=== PATIENT | male | born 1945 | race Caucasian/White ===

== ENCOUNTER 2017-08-28 18:22 | Emergency (ER) | payer OTHER ==
[~2017-08-28] VITALS: Ht 188 cm; Wt 103.0 kg
[~2017-08-28 18:22] MED LIST: ASPCH81 PO; LISI5TAB3 PO; OXYC1TAB3 PO; PRLSR20 PO; ZCRUNK
[2017-08-28 18:46] VITALS: Ht 188 cm; Wt 103.0 kg
[2017-08-28] MEDS ORDERED: ALBUT/IPRATROP 3MG/0.5MG NEB 3 ML VIAL INH STA (19:07)
[2017-08-28] MEDS ORDERED: KETOROLAC TROMETHAMINE 30 MG/ML VIAL IV STA (19:07)
[2017-08-28] MEDS ORDERED: ACETAMINOPHEN 500 MG TAB PO STA (19:07)
--- NOTE | 2017-08-28 19:14 | EMERGENCY ROOM VISIT NOTE ---
History First contact with patient: 18:50 Chief Complaint: FLU LIKE SX Stated Complaint: FLU, ACHY, TROUBLE BREATHING History of Present Illness The patient is a 72 year old male who presents to the Emergency Room with complaints of flulike symptoms for the last 5 days. The patient took his temperature at home. It was 101F. He is been alternating Tylenol with ibuprofen with minimal relief of his symptoms. He is now feeling short of breath. He has a nonproductive cough. He also reports a burning sensation in the middle of his chest, particularly with coughing. He denies any history of cardiac disease. He denies any sick contacts. He works construction. He did not get his flu shot this year. Review of Systems 10 system review performed and negative unless noted in HPI or below Past Medical/Surgical History Hypertension Social History Marital Status: Occupation Status: employed Current/Historical Medications Scheduled Aspirin (Aspirin Ec), 81 MG PO DAILY Lisinopril (Prinivil), 5 MG PO DAILY Pseudoephedrine-Guaifenesin (Mucinex D), 1 TAB PO BID Rosuvastatin Calcium (Crestor), 10 MG PO DAILY Scheduled PRN Hydrocodone W/ Homatropine (Hycodan 5/1.5MG 5 Ml), 5-10 ML PO Q4H PRN for Cough Physical Exam Vital Signs Date Time Temp Pulse Resp B/P (MAP) Pulse Ox O2 Delivery O2 Flow Rate FiO2 08/28/17 22:10 78 18 128/73 96 08/28/17 20:37 37.7 80 20 148/71 96 Room Air 08/28/17 19:57 81 08/28/17 18:46 37.7 92 20 171/88 96 Room Air Physical Exam GENERAL: 72-year-old male, mildly acutely ill in appearance,, SKIN: The skin was warm HEAD: Normocephalic atraumatic. MOUTH: Mucous membranes slightly dry NECK: Supple without nuchal rigidity. No lymphadenopathy. Cervical spine is nontender. No JVD. HEART: Regular rate and rhythm without murmurs gallops or rubs. LUNGS: Mild diffuse wheezing the bases bilaterally. ABDOMEN: Positive bowel sounds x 4.Soft, nontender, without organomegaly. No guarding or rebound tenderness. MUSCULOSKELETAL: No muscle atrophy, erythema, or edema noted. Strength 5/5 throughout. NEURO: Patient was alert and oriented to person place and time. Normal sensation to touch. No focal neurological deficits. Medical Decision & Procedures ER Provider Diagnostic Interpretation: CXR IMPRESSION: 1. Mild cardiomegaly. Otherwise no acute cardiopulmonary disease. Electronically signed by: Conner Hickey M.D. 08/28/2017 8:41 PM Dictated Date/Time: 08/28/2017 8:38 PM The status of this report is Signed. Draft = Not yet reviewed or approved by Radiologist. Signed = Reviewed and approved by Radiologist. <AttendingPhy></AttendingPhy> <FamilyPhy>Spring TERRAZAS M.D.</FamilyPhy> < PrimaryPhy>Spring TERRAZAS M.D.</PrimaryPhy> <UnitNumber>[id number]</UnitNumber> <VisitNumber>[id number]</VisitNumber> <PatientName>GELAAIRTESS Akhtar</ PatientName> <DateOfBirth>1945</DateOfBirth> <Location>[facility]</Location> < ServiceDate>08/28/17</ServiceDate> <MNE>ESINDI</MNE> <OrderingPhy>Jacqui Delarosa PA-C</OrderingPhy> <OrderingPhyMNE>f rep ord dr vaughan</OrderingPhyMNE> < DictatingPhyMNE>f rep dict dr vaughan</DictatingPhyMNE> <CCListMNE>f rep ct mne</ CCListMNE> <AdmittingPhyMNE>f pt admit dr vaughan</AdmittingPhyMNE> <AttendingPhyMNE >f pt attend dr vaughan</AttendingPhyMNE> <ConsultingPhyMNE>f pt consult dr vaughan</ConsultingPhyMNE> <FamilyPhyMNE>f pt fam dr vaughan</FamilyPhyMNE> <OtherPhyMNE>f pt other dr vaughan</OtherPhyMNE> < PrimaryPhyMNE>f pt prim care dr vaughan</PrimaryPhyMNE> <ReferringPhyMNE>f pt referring dr vaughan</ReferringPhyMNE> Laboratory Results 08/28/17 19:40 Red Blood Count 4.75, Mean Corpuscular Volume 84.8, Mean Corpuscular Hemoglobin 30.3, Mean Corpuscular Hemoglobin Concent 35.7, Mean Platelet Volume 9.9, Neutrophils (%) (Auto) 73.0, Lymphocytes (%) (Auto) 16.7, Monocytes (%) (Auto) 9.9, Eosinophils (%) (Auto) 0.2, Basophils (%) (Auto) 0.2, Neutrophils # (Auto) 3.63, Lymphocytes # (Auto) 0.83, Monocytes # (Auto) 0.49, Eosinophils # (Auto) 0.01, Basophils # (Auto) 0.01 08/28/17 19:40 Test 08/28/17 19:40 08/28/17 19:50 White Blood Count 4.97 K/uL (4.8-10.8) Red Blood Count 4.75 M/uL (4.7-6.1) Hemoglobin 14.4 g/dL (14.0-18.0) Hematocrit 40.3 % (42-52) Mean Corpuscular Volume 84.8 fL (80-100) Mean Corpuscular Hemoglobin 30.3 pg (25-34) Mean Corpuscular Hemoglobin Concent 35.7 g/dl (32-36) Platelet Count 131 K/uL (130-400) Mean Platelet Volume 9.9 fL (7.4-10.4) Neutrophils (%) (Auto) 73.0 % Lymphocytes (%) (Auto) 16.7 % Monocytes (%) (Auto) 9.9 % Eosinophils (%) (Auto) 0.2 % Basophils (%) (Auto) 0.2 % Neutrophils # (Auto) 3.63 K/uL (1.4-6.5) Lymphocytes # (Auto) 0.83 K/uL (1.2-3.4) Monocytes # (Auto) 0.49 K/uL (0.11-0.59) Eosinophils # (Auto) 0.01 K/uL (0-0.5) Basophils # (Auto) 0.01 K/uL (0-0.2) RDW Standard Deviation 42.1 fL (36.4-46.3) RDW Coefficient of Variation 13.6 % (11.5-14.5) Immature Granulocyte % (Auto) 0.0 % Immature Granulocyte # (Auto) 0.00 K/uL (0.00-0.02) Anion Gap 8.0 mmol/L (3-11) Est Creatinine Clear Calc Drug Dose 72.5 ml/min Estimated GFR () 71.0 Estimated GFR (Non- 61.3 BUN/Creatinine Ratio 12.2 (10-20) Calcium Level 8.5 mg/dl (8.5-10.1) Total Bilirubin 0.4 mg/dl (0.2-1) Aspartate Amino Transf (AST/SGOT) 28 U/L (15-37) Alanine Aminotransferase (ALT/SGPT) 45 U/L (12-78) Alkaline Phosphatase 70 U/L (45-117) Troponin I < 0.015 ng/ml (0-0.045) Total Protein 7.3 gm/dl (6.4-8.2) Albumin 3.7 gm/dl (3.4-5.0) Globulin 3.6 gm/dl (2.5-4.0) Albumin/Globulin Ratio 1.0 (0.9-2) Influenza Type A Antigen Neg for Influ A (NEG) Influenza Type B Antigen POS for Influ B (NEG) Medications Administered Medications (Trade) Dose Ordered Sig/Carly Route Start Time Stop Time Status Last Admin Dose Admin Sodium Chloride 1,000 ml @ 999 mls/hr Q1H1M ONCE IV 08/28/17 19:15 08/28/17 20:15 DC 08/28/17 19:45 999 MLS/HR Ketorolac Tromethamine (Toradol Inj) 15 mg NOW STAT IV 08/28/17 19:07 08/28/17 19:10 DC 08/28/17 19:45 15 MG Acetaminophen (Tylenol Tab) 1,000 mg NOW STAT PO 08/28/17 19:07 08/28/17 19:10 DC 08/28/17 19:44 1,000 MG Albuterol/ Ipratropium (Duoneb) 3 ml ONE STAT INH 08/28/17 19:07 08/28/17 19:10 DC 08/28/17 19:45 3 ML Hydrocodone Bit/ Homatropine Methylb (Hycodan Syrup) 5 ml NOW STAT PO 08/28/17 20:33 08/28/17 20:34 DC 08/28/17 20:33 5 ML Hydrocodone Bit/ Homatropine Methylb (Hycodan Elix Homepack 5/1.5MG/ 5ML) 1 [facility] UD ONCE PO 08/28/17 22:00 08/28/17 22:01 DC 08/28/17 22:00 1 [facility] ED Course Patient was seen and examined Vital signs including blood pressure were reviewed medications list was verified with patient Labs were obtained, and a saline lock was established The patient was medicated with Toradol 15 mg IV and Tylenol 1 g by mouth. He was hydrated with 1 L of normal saline. He was also given a DuoNeb. The patient was reassessed and resting in bed. We discussed the results of his workup. He voiced understanding. And oxygen trial was performed. The patient was saturating at 94% on room air. The patient was also seen and examined by myself supervising physician who is in agreement with my plan. I reviewed discharge instructions the patient. They voiced understanding and had no further questions. Medical Decision Differential diagnosis: Bronchitis, pneumonia, influenza, other viral syndrome This patient is a 72-year-old male presents to the emergency department complaining of flulike symptoms for 5 days. On exam, he did appear mildly acutely ill. His workup revealed a positive influenza B. There are no signs of pneumonia. The patient's symptoms have been going on for at least 5 days. He is out of the window for Tamiflu. Patient had some symptomatic relief in the emergency department. He'll be sent home on a cough suppressant.. He was instructed to continue taking Tylenol and Motrin in addition to pushing fluids. He was comfortable with this plan. He was encouraged to follow-up with his primary care physician as scheduled tomorrow. He agrees to return to the emergency department with any worsening symptoms. This chart was completed in part utilizing [employer] Speech Voice Recognition software. Attempts were made to minimize the grammatical errors, random word insertions, pronoun errors and incomplete sentences. Any formal questions or concerns about the content, text or information contained within the body of this dictation should be directly addressed to the provider for clarification. Medication Reconcilliation Current Medication List: was personally reviewed by me Blood Pressure Screening Patient's blood pressure: Elevated blood pressure Blood pressure disposition: Referred to PCP Impression Primary Impression: Influenza B Departure Information Dispostion Home / Self-Care Condition FAIR Prescriptions Pseudoephedrine-Guaifenesin (MUCINEX D) 1 Tab Tab 1 TAB PO BID for 5 Days, #10 TAB Prov: Jacqui Delarosa PA-C 08/28/17 Hydrocodone W/ Homatropine (HYCODAN 5/1.5MG 5 ML) 1 Syp Syp 5-10 ML PO Q4H Y for Cough, #120 ML For Initial Treatment Prov: Jacqui Delarosa PA-C 08/28/17 Referrals Spring TERRAZAS M.D. (PCP) Patient Instructions ED Influenza Ch, My [facility] Additional Instructions You were evaluated in the emergency department for a cough and fever. You tested positive for influenza B. This is fairly contagious. Please avoid public places and wash hands frequently until you are feeling better Ibuprofen 600 mg and/or Tylenol 1000 mg every 8 hours. You may also alternate these medications for more effective pain relief: Ibuprofen --4 HRS--> Tylenol --4 HRS--> ibuprofen --4 HRS--> Tylenol .... Please take cough syrup 1-2 teaspoons every 6 hours as needed for cough Please take Mucinex as prescribed Please increase fluids over the next several days. Please follow-up with her primary care physician tomorrow as scheduled Do not hesitate to return to the emergency department with any new, worsening or concerning symptoms Work Instructions Return To Work: 3 days
[2017-08-28] MEDS ORDERED: SODIUM CHLORIDE 0.9% 1000ML 1,000 ML IV ONE (19:15)
[2017-08-28] MEDS ORDERED: ROSU20TA PO (19:20)
[2017-08-28] MEDS ORDERED: LISI-729 PO (19:20)
[2017-08-28] MEDS ORDERED: ASPI81TA28 PO (19:20)
[2017-08-28 19:50] LABS: BASO % 0.2 %; BASO ABS # 0.01 K/uL (0-0.2); EOS % 0.2 %; EOS ABS # 0.01 K/uL (0-0.5); HEMATOCRIT 40.3 % (42-52); HEMOGLOBIN 14.4 g/dL (14.0-18.0); LYMPH % 16.7 %; LYMPH ABS # 0.83 K/uL (1.2-3.4); MEAN CELL VOLUME 84.8 fL (80-100); MEAN CORPUSCULAR HEMOGLOBIN 30.3 pg (25-34); MEAN CORPUSCULAR HGB CONC 35.7 g/dl (32-36); MEAN PLATELET VOLUME 9.9 fL (7.4-10.4); MONO % 9.9 %; MONO ABS # 0.49 K/uL (0.11-0.59); NEUT ABS # 3.63 K/uL (1.4-6.5); PLATELET COUNT 131 K/uL (130-400); RED CELL DISTRIBUTION WIDTH CV 13.6 % (11.5-14.5); RED CELL DISTRIBUTION WIDTH SD 42.1 fL (36.4-46.3); WHITE BLOOD COUNT 4.97 K/uL (4.8-10.8)
[2017-08-28 20:07] LABS: ALBUMIN 3.7 gm/dl (3.4-5.0); ALT/SGPT 45 U/L (12-78); AST/SGOT 28 U/L (15-37); BLOOD UREA NITROGEN 14 mg/dl (7-18); CALCIUM 8.5 mg/dl (8.5-10.1); CARBON DIOXIDE 23 mmol/L (21-32); CREATININE 1.18 mg/dl (0.60-1.40); GLUCOSE 126 mg/dl (70-99); POTASSIUM 4.1 mmol/L (3.5-5.1); SODIUM 132 mmol/L (136-145)
[2017-08-28 20:12] LABS: ALKALINE PHOSPHATASE 70 U/L (45-117); TOTAL PROTEIN 7.3 gm/dl (6.4-8.2)
[2017-08-28] MEDS ORDERED: HYDROCODONE/HOMATROPINE SYRUP 5MG/1.5MG 5ML UDP PO STA (20:33)
[2017-08-28 20:37] VITALS: TEMP 37.7
--- NOTE | 2017-08-28 20:42 | DIAGNOSTIC IMAGING REPORT ---
CHEST 2 VIEWS ROUTINE CLINICAL HISTORY: 72 years-old Male presenting with fever cough. TECHNIQUE: PA and lateral views of the chest were obtained. COMPARISON: 12/13/2009. FINDINGS: Cardiac silhouette mildly enlarged. Apparent left retrocardiac opacity on frontal view does not have a correlate on lateral view and may be due to cardiac enlargement. Lungs and pleural spaces clear. Degenerative changes of the thoracic spine. Upper abdomen normal. IMPRESSION: 1. Mild cardiomegaly. Otherwise no acute cardiopulmonary disease. Electronically signed by: Conner Hickey M.D. 08/28/2017 8:41 PM Dictated Date/Time: 08/28/2017 8:38 PM
[2017-08-28 20:50] LABS: INFLUENZA B ANTIGEN POS for Influ B (NEG)
[2017-08-28] MEDS ORDERED: HYDR5SYP11 PO (21:49)
[2017-08-28] MEDS ORDERED: PSEU60TA80 PO (21:49)
[2017-08-28] MEDS ORDERED: HYCODAN 60ML BOTTLE HOMEPACK PO ONE (22:00)
[2017-08-28 22:10] VITALS: BP 128/73; PULSE 78; O2SAT 96
== END 2017-08-28 22:10 | disposition home or self-care (01) ==
LOC: C.EDB 18:23
DX: J10.1 Influenza due to other identified influenza virus with other respiratory manifestations (principal); I10 Essential (primary) hypertension; Z79.82 Long term (current) use of aspirin